=== PATIENT | born 1955 | race Caucasian/White ===

== ENCOUNTER 2022-04-19 09:17 | Outpatient (CLI) | payer MEDICARE, OTHER, SELFPAY ==
[2022-04-19 22:47] LABS: LDL Cholesterol Direct 125 mg/dL
[2022-04-19 23:09] LABS: Alanine Aminotransferase 27 U/L (6-50); Albumin Level 4.5 g/dL (3.5-5.1); Alkaline Phosphatase 60 U/L (38-126); Anion Gap 7 mmol/L (8-16); Aspartate Amino Transferase 44 U/L (17-59); Bilirubin,Total 0.7 mg/dL (0.2-1.3); Blood Urea Nitrogen 18 mg/dL (7-20); Calcium 9.2 mg/dL (8.4-10.2); Carbon Dioxide 31 mmol/L (22-30); Chloride 101 mmol/L (96-107); Cholesterol 236 mg/dL (0-200); Estimated Glomerular Filt Rate > 60; Glucose 44 mg/dL (65-110); HDL Direct 66 mg/dL; Sodium 139 mmol/L (137-145); Triglycerides 53 mg/dL (<150)
== END 2022-04-19 09:18 | disposition home or self-care (01) ==
LOC: ANHGOSHLAB 09:20
PROVIDERS: PCP Family Medicine; Visit Provider Family Medicine
DX: E78.5 Hyperlipidemia, unspecified (principal); Z13.29 Encounter for screening for other suspected endocrine disorder; Z13.228 Encounter for screening for other metabolic disorders
CPT/HCPCS: 36415; 80053; 80061; 84443